=== PATIENT | male | born 1990 | race American Indian/Alaskan Native ===

== ENCOUNTER 2019-10-10 18:04 | Emergency (ER) | payer SELFPAY ==
[2019-10-10 18:29] VITALS: BP 133/83
--- NOTE | 2019-10-10 18:52 | Emergency Department Report ---
Blank Doc - Documentation Documentation: 29-year-old male that presents abdominal pain, n/v with a syncopal episode. This initial assessment/diagnostic orders/clinical plan/treatment(s) is/are subject to change based on patient's health status, clinical progression and re- assessment by fellow clinical providers in the ED. Further treatment and workup at subsequent clinical providers discretion. Patient/guardians urged not to elope from the ED as their condition may be serious if not clinically assessed and managed. Initial orders include: 1- Patient sent to [facility] for further evaluation and treatment 2- labs 3- UA
[2019-10-10 19:27] LABS: Basophils % (Auto) 0.6 % (0.0-1.8); Eosinophils # (Auto) 0.1 K/mm3 (0.0-0.4); Eosinophils % (Auto) 1.4 % (0.0-4.3); Hematocrit 44.6 % (35.5-45.6); Hemoglobin 14.7 gm/dl (11.8-15.2); Lymphocytes # (Auto) 1.8 K/mm3 (1.2-5.4); Lymphocytes % (Auto) 29.2 % (13.4-35.0); Mean Corpuscular HGB Conc 33 % (32-34); Mean Corpuscular Volume 82 fl (84-94); Monocytes # (Auto) 0.6 K/mm3 (0.0-0.8); Monocytes % (Auto) 10.4 % (0.0-7.3); Platelet Count 190 K/mm3 (140-440); Red Blood Count 5.41 M/mm3 (3.65-5.03); Red Cell Distribution Width 17.5 % (13.2-15.2)
[2019-10-10 19:43] LABS: Alanine Aminotransferase 16 units/L (7-56); Albumin 5.1 g/dL (3.9-5); BUN/Creatinine Ratio 13; Blood Urea Nitrogen 13 mg/dL (9-20); Calcium 9.7 mg/dL (8.4-10.2); Hemolysis Index 7
[2019-10-10] MEDS ORDERED: FAMOTIDINE 20 MG TAB PO ONE (19:52)
[2019-10-10] MEDS ORDERED: ONDANSETRON 4 MG ODT TAB PO ONE (19:52)
[2019-10-10] MEDS ORDERED: DICYCLOMINE 20 MG TAB PO ONE (19:52)
[2019-10-10] MEDS ORDERED: POTASSIUM CHLORIDE ER 20 MEQ TAB PO ONE (19:53)
[2019-10-10 20:16] LABS: Bilirubin,Urine NEG (Negative); Blood,Urine NEG (Negative); Color,Urine Yellow (Yellow); RBC,Urine < 1.0 /HPF (0.0-6.0)
--- NOTE | 2019-10-10 21:04 | Emergency Department Report ---
ED Abdominal Pain HPI - General Chief Complaint: Abdominal Pain Stated Complaint: STOMACH PAIN/JW Time Seen by Provider: 10/10/19 18:50 Source: patient Mode of arrival: Ambulatory Limitations: No Limitations - History of Present Illness Initial Comments: Patient is a 29-year-old -[place] male with no past medical history presents to the ED we continued acute onset persistent nausea and vomiting with diffuse abdominal pain for the last 12 hours intermittently after he ate from a [place] restaurant. Patient states that he has had multiple episodes of nausea and vomiting and started having muscle spasms of his hands and feet and is unaccompanied to the ED because he thought he was having a major medical emergency Lar[place] stroke. Patient denies dizziness, fever, chills, diarrhea, dysuria, testicular pain, chest pain, shortness of breath, sore throat or headache. MD Complaint: abdominal pain, other (nausea and vomiting) -: Sudden, hour(s) (12) Location: diffuse Radiation: none Migration to: no migration Severity: moderate Severity scale (0 -10): 5 Quality: cramping, aching, dull Consistency: intermittent Improves With: nothing Worsens With: nothing Context: possible food poisoning Associated Symptoms: denies other symptoms, nausea, vomiting. denies: diarrhea, fever, constipation, dysuria, hematochezia, melena, hematuria, anorexia, syncope - Related Data Previous Rx's Medication Instructions Recorded Last Taken Type Acetaminophen/Codeine [Tylenol #3] 1 tab PO Q6H PRN #20 tab 10/26/15 Unknown Rx Ibuprofen [Motrin 800 MG tab] 800 mg PO Q8HR #45 tablet 10/26/15 Unknown Rx Dicyclomine [Bentyl] 20 mg PO Q12H PRN #24 tablet 10/10/19 Unknown Rx Famotidine [Pepcid] 20 mg PO Q12H #30 tablet 10/10/19 Unknown Rx Ondansetron [Zofran Odt] 4 mg PO Q6HR PRN #20 tab.rapdis 10/10/19 Unknown Rx Allergies Allergy/AdvReac Type Severity Reaction Status Date / Time No Known Allergies Allergy Verified 10/26/15 05:35 ED Review of Systems ROS: Stated complaint: STOMACH PAIN/JW Other details as noted in HPI Constitutional: denies: chills, fever Eyes: denies: eye pain, eye discharge, vision change ENT: denies: ear pain, throat pain Respiratory: denies: cough, shortness of breath, wheezing Cardiovascular: denies: chest pain, palpitations Endocrine: no symptoms reported Gastrointestinal: abdominal pain, nausea, vomiting. denies: diarrhea Genitourinary: denies: urgency, dysuria Musculoskeletal: denies: back pain, joint swelling, arthralgia Skin: denies: rash, lesions Neurological: denies: headache, weakness, paresthesias Psychiatric: denies: anxiety, depression Hematological/Lymphatic: denies: easy bleeding, easy bruising ED Past Medical Hx - Past Medical History Previous Medical History?: No - Surgical History Past Surgical History?: No - Social History Smoking Status: Current Every Day Smoker Substance Use Type: None - Medications Home Medications: Home Medications Medication Instructions Recorded Confirmed Last Taken Type Acetaminophen/Codeine [Tylenol #3] 1 tab PO Q6H PRN #20 tab 10/26/15 Unknown Rx Ibuprofen [Motrin 800 MG tab] 800 mg PO Q8HR #45 tablet 10/26/15 Unknown Rx Dicyclomine [Bentyl] 20 mg PO Q12H PRN #24 tablet 10/10/19 Unknown Rx Famotidine [Pepcid] 20 mg PO Q12H #30 tablet 10/10/19 Unknown Rx Ondansetron [Zofran Odt] 4 mg PO Q6HR PRN #20 tab.rapdis 10/10/19 Unknown Rx ED Physical Exam - General Limitations: No Limitations General appearance: alert, in no apparent distress - Head Head exam: Present: atraumatic, normocephalic, normal inspection - Eye Eye exam: Present: normal appearance, PERRL, EOMI Pupils: Present: normal accommodation - ENT ENT exam: Present: normal exam, normal orophraynx, mucous membranes moist, TM's normal bilaterally, normal external ear exam - Neck Neck exam: Present: normal inspection, full ROM - Respiratory Respiratory exam: Present: normal lung sounds bilaterally. Absent: respiratory distress, wheezes, rales, rhonchi, chest wall tenderness, accessory muscle use, decreased breath sounds - Cardiovascular Cardiovascular Exam: Present: regular rate, normal rhythm, normal heart sounds. Absent: systolic murmur, diastolic murmur, rubs, gallop - GI/Abdominal GI/Abdominal exam: Present: soft, normal bowel sounds. Absent: tenderness, guarding, rebound, hyperactive bowel sounds - Rectal Rectal exam: Present: deferred - Extremities Exam Extremities exam: Present: normal inspection, full ROM, normal capillary refill - Back Exam Back exam: Present: normal inspection, full ROM. Absent: CVA tenderness (L), muscle spasm, paraspinal tenderness - Neurological Exam Neurological exam: Present: alert, oriented X3, CN II-XII intact, normal gait, reflexes normal - Psychiatric Psychiatric exam: Present: normal affect, normal mood - Skin Skin exam: Present: warm, dry, intact, normal color. Absent: rash ED Course Vital Signs 10/10/19 18:26 Temperature 97.6 F Pulse Rate 89 Respiratory 17 Rate Blood Pressure 133/83 O2 Sat by Pulse 98 Oximetry ED Medical Decision Making - Lab Data Result diagrams: 10/10/19 18:55 10/10/19 18:55 - Medical Decision Making This is a 29-year-old male who presented to the ED with nausea, vomiting and abdominal pain for about 12 hours after eating food from a restaurant. In the ED, patient is alert and oriented 3 and is not in distress. Lab test results were reviewed and show mild hypokalemia of 3.3 mmol per liter. The rest of the lab test results are nonactionable. Patient was treated for nausea and vomiting and pain and was discharged home on medications including antiemetics and pain medications. Patient is advised to maintain a clear liquid diet for 12-24 hours, and follow-up with his primary care physician in 7-10 days for reevaluation or return to the ED immediately if symptoms get worse. - Differential Diagnosis Viral gastroenteritis; Dehydration; GERD Critical care attestation.: If time is entered above; I have spent that time in minutes in the direct care of this critically ill patient, excluding procedure time. ED Disposition Clinical Impression: Nausea and vomiting in adult, Viral gastroenteritis Abdominal pain Qualifiers: Abdominal location: generalized Qualified Code(s): R10.84 - Generalized abdominal pain Disposition: TO HOME OR SELFCARE Is pt being admited?: No Does the pt Need Aspirin: No Condition: Stable Instructions: Acute Abdominal Pain (ED), Acute Nausea and Vomiting (ED), Gastroenteritis (ED) Additional Instructions: Maintain a clear liquid diet for 12-24 hours, take medications with food, drink plenty fluids and follow-up with your primary care physician in 5-7 days for reevaluation. Return to the ED immediately if symptoms get worse. Prescriptions: Dicyclomine [Bentyl] 20 mg PO Q12H PRN #24 tablet PRN Reason: Pain , Severe (7-10) Famotidine [Pepcid] 20 mg PO Q12H #30 tablet Ondansetron [Zofran Odt] 4 mg PO Q6HR PRN #20 tab.rapdis PRN Reason: Nausea Referrals: [facility] [Outside] - 7-10 days Forms: Work/School Release Form(ED) Time of Disposition: 21:04 Print Language: ALGERIAN
== END 2019-10-10 21:59 | disposition home or self-care (01) ==
LOC: ED 18:04
DX: A08.4 Viral intestinal infection, unspecified (principal); F17.200 Nicotine dependence, unspecified, uncomplicated
CPT/HCPCS: 36415; 80053; 81001; 83690; 85025; 93005; 93010; Q0162

== ENCOUNTER 2022-03-20 21:40 | Emergency (ER) | payer SELFPAY ==
[2022-03-20] MEDS ORDERED: ONDANSETRON 4 MG/2 ML INJ IV ONE (22:11)
[2022-03-20] MEDS ORDERED: diphenhydrAMINE 50 MG/ML VIAL IV ONE (22:11)
[2022-03-20] MEDS ORDERED: SODIUM CHLORIDE 0.9% 1000 ML 1,000 ML IV ONE (22:11)
--- NOTE | 2022-03-20 22:14 | Emergency Department Report ---
ED Abdominal Pain HPI - General Chief Complaint: Nausea/Vomiting/Diarrhea Stated Complaint: NAUSEA/VOMITING Time Seen by Provider: 03/20/22 22:08 Source: patient, EMS Mode of arrival: Stretcher Limitations: No Limitations - History of Present Illness Initial Comments: Patient is a 32 years old male with no significant past medical history. Patient brought to the emergency room via EMS from home for evaluation of diffuse abdominal pain, nausea and vomiting for the whole day today. Patient is actively vomiting in the ER. Patient denied any fever or chills. He stated that he was smoking marijuana yesterday. MD Complaint: abdominal pain -: This morning Location: diffuse Radiation: none Migration to: no migration Severity scale (0 -10): 3 Quality: cramping Consistency: intermittent Associated Symptoms: nausea, vomiting. denies: diarrhea - Related Data Previous Rx's Medication Instructions Recorded Last Taken Type Acetaminophen/Codeine [Tylenol #3] 1 tab PO Q6H PRN #20 tab 10/26/15 Unknown Rx Ibuprofen [Motrin 800 MG tab] 800 mg PO Q8HR #45 tablet 10/26/15 Unknown Rx Dicyclomine [Bentyl] 20 mg PO Q12H PRN #24 tablet 10/10/19 Unknown Rx Famotidine [Pepcid] 20 mg PO Q12H #30 tablet 10/10/19 Unknown Rx Ondansetron [Zofran Odt] 4 mg PO Q6HR PRN #20 tab.rapdis 10/10/19 Unknown Rx Ondansetron [Zofran Odt] 4 mg PO Q8HR PRN #14 tab.rapdis 03/21/22 Unknown Rx Allergies Allergy/AdvReac Type Severity Reaction Status Date / Time No Known Allergies Allergy Verified 10/26/15 05:35 ED Review of Systems ROS: Stated complaint: NAUSEA/VOMITING Other details as noted in HPI Comment: All other systems reviewed and negative Constitutional: denies: chills, fever Respiratory: denies: cough, shortness of breath, SOB with exertion, SOB at rest Cardiovascular: denies: chest pain, palpitations Gastrointestinal: abdominal pain, nausea, vomiting. denies: diarrhea, constipation, hematemesis, melena, hematochezia Musculoskeletal: denies: back pain Neurological: denies: headache, weakness, numbness, paresthesias, confusion ED Past Medical Hx - Past Medical History Previous Medical History?: No - Surgical History Past Surgical History?: No - Social History Smoking Status: Never Smoker Substance Use Type: None - Medications Home Medications: Home Medications Medication Instructions Recorded Confirmed Last Taken Type Acetaminophen/Codeine [Tylenol #3] 1 tab PO Q6H PRN #20 tab 10/26/15 Unknown Rx Ibuprofen [Motrin 800 MG tab] 800 mg PO Q8HR #45 tablet 10/26/15 Unknown Rx Dicyclomine [Bentyl] 20 mg PO Q12H PRN #24 tablet 10/10/19 Unknown Rx Famotidine [Pepcid] 20 mg PO Q12H #30 tablet 10/10/19 Unknown Rx Ondansetron [Zofran Odt] 4 mg PO Q6HR PRN #20 tab.rapdis 10/10/19 Unknown Rx Ondansetron [Zofran Odt] 4 mg PO Q8HR PRN #14 tab.rapdis 03/21/22 Unknown Rx ED Physical Exam - General Limitations: No Limitations General appearance: alert, other (Actively vomiting.) - Head Head exam: Present: atraumatic, normocephalic, normal inspection - Eye Eye exam: Present: normal appearance - ENT ENT exam: Present: mucous membranes dry - Neck Neck exam: Present: normal inspection, full ROM. Absent: tenderness, meningismus, lymphadenopathy, thyromegaly - Respiratory Respiratory exam: Present: normal lung sounds bilaterally - Cardiovascular Cardiovascular Exam: Present: regular rate, normal rhythm, normal heart sounds - GI/Abdominal GI/Abdominal exam: Present: soft, normal bowel sounds. Absent: distended, tenderness, guarding, rebound, rigid, mass, bruit, pulsatile mass, hernia - Extremities Exam Extremities exam: Present: normal inspection, full ROM, normal capillary refill. Absent: tenderness - Back Exam Back exam: Present: normal inspection, full ROM. Absent: CVA tenderness (R), CVA tenderness (L) - Neurological Exam Neurological exam: Present: alert, oriented X3, CN II-XII intact, normal gait, reflexes normal. Absent: motor sensory deficit - Psychiatric Psychiatric exam: Present: normal mood - Skin Skin exam: Present: warm, intact, normal color ED Course Vital Signs 03/20/22 03/21/22 21:59 02:51 Temperature 98.6 F 98 F Pulse Rate 88 78 Respiratory 20 18 Rate Blood Pressure 110/78 Blood Pressure 119/78 [Left] O2 Sat by Pulse 100 100 Oximetry ED Medical Decision Making - Lab Data Result diagrams: 03/20/22 22:35 03/20/22 22:35 - Radiology Data Radiology results: report reviewed - Medical Decision Making Patient is a 32 years old male with no significant past medical history. Patient brought to the emergency room via EMS from home for evaluation of diffuse abdominal pain, nausea and vomiting for the whole day today. Patient is actively vomiting in the ER. Patient denied any fever or chills. He stated that he was smoking marijuana yesterday. Patient received Zofran, Benadryl and normal saline. Patient stated that he feels much better. Labs reviewed and is unremarkable except for mild leukocytosis and a creatinine of 1.5. This is most likely due to dehydration. CT abdomen and pelvis with IV contrast is negative for acute finding. Patient symptoms most likely related to marijuana. Patient counseled about the. Patient given prescription for Zofran and advised to follow-up with his primary doctor in the next 2 to 3 days to reduce the ER if he develop any new symptoms. Critical care attestation.: If time is entered above; I have spent that time in minutes in the direct care of this critically ill patient, excluding procedure time. ED Disposition Clinical Impression: Acute abdominal pain, Cannabinoid hyperemesis syndrome, Acute nausea with nonbilious vomiting Disposition: HOME HEALTH CARE SERVICE Is pt being admited?: No Condition: Stable Instructions: Abdominal Pain, Adult, Cannabis Use Disorder, Nausea and Vomiting, Adult Prescriptions: Ondansetron [Zofran Odt] 4 mg PO Q8HR PRN #14 tab.rapdis PRN Reason: Nausea And Vomiting Referrals: SKY GAMEZ MD [Staff Physician] - 3-5 Days
[2022-03-20 22:46] LABS: Basophils % (Auto) 0.3 % (0.0-1.8); Eosinophils % (Auto) 0.3 % (0.0-4.3); Hematocrit 47.6 % (35.5-45.6); Hemoglobin 15.5 gm/dl (11.8-15.2); Lymphocytes # (Auto) 0.6 K/mm3 (1.2-5.4); Lymphocytes % (Auto) 5.4 % (13.4-35.0); Mean Corpuscular HGB Conc 33 % (32-34); Mean Corpuscular Volume 86 fl (84-94); Monocytes # (Auto) 1.2 K/mm3 (0.0-0.8); Monocytes % (Auto) 10.3 % (0.0-7.3); Platelet Count 265 K/mm3 (140-440); Red Blood Count 5.54 M/mm3 (3.65-5.03); Red Cell Distribution Width 14.7 % (13.2-15.2)
[2022-03-20 23:17] LABS: Alanine Aminotransferase 33 units/L (7-56); BUN/Creatinine Ratio 7; Blood Urea Nitrogen 10 mg/dL (9-20); Calcium 10.9 mg/dL (8.4-10.2); Hemolysis Index 14
[2022-03-20 23:41] LABS: Albumin 6.8 g/dL (3.9-5)
[2022-03-21] MEDS ORDERED: SODIUM CHLORIDE 0.9% 1000 ML 1,000 ML IV ONE (00:41)
--- NOTE | 2022-03-21 01:19 | Cat Scan Report ---
CT ABDOMEN AND PELVIS WITH CONTRAST INDICATION / CLINICAL INFORMATION: Unspecified abdominal pain. TECHNIQUE: Axial CT images were obtained through the abdomen and pelvis after 100 cc Omnipaque [address] scans at this location are performed using CT dose reduction for ALARA by means of automated exposure control. COMPARISON: No relevant prior imaging study available. FINDINGS: LOWER CHEST: No significant abnormality. LIVER: No significant abnormality. GALLBLADDER: No significant abnormality. BILE DUCTS: No significant abnormality. PANCREAS: No significant abnormality. SPLEEN: No significant abnormality. ADRENALS: No significant abnormality. RIGHT KIDNEY/URETER: No significant abnormality. LEFT KIDNEY/URETER: No significant abnormality. STOMACH/SMALL BOWEL: No significant abnormality. COLON: No significant abnormality. APPENDIX: No significant abnormality. PERITONEUM: No free fluid. No free air. No fluid collection. LYMPH NODES: No significant adenopathy. VASCULATURE: No significant abnormality. URINARY BLADDER: No significant abnormality. REPRODUCTIVE ORGANS: No significant abnormality. ADDITIONAL FINDINGS: None. BONES: No significant abnormality IMPRESSION: 1. No significant abnormality to explain the patient's abdominal pain. Signer Name: Eladio Douglass MD Signed: 03/21/2022 1:15 AM Workstation Name: [id number]
[2022-03-21 03:02] VITALS: BP 119/78
== END 2022-03-21 02:54 | disposition home health service (06) ==
LOC: ED 21:40
DX: R10.0 Acute abdomen (principal); R11.2 Nausea with vomiting, unspecified; F12.90 Cannabis use, unspecified, uncomplicated
CPT/HCPCS: 36415; 74177; 80053; 83690; 85025; 96361; 96374; 96375; 99284; J1200; J2405; J7030; Q9967